=== PATIENT | female | born 1975 | race African-American/Black ===

== ENCOUNTER 2020-10-09 09:25 | Emergency (ER) | payer MEDICAID, OTHER ==
[~2020-10-09] VITALS: Ht 162.6 cm; Wt 133.4 kg
[2020-10-09] MEDS ORDERED: ACETAMINOPHEN 325 MG TAB PO ONE (10:30)
[2020-10-09 11:04] VITALS: BP 129/86
[2020-10-09] MEDS ORDERED: cefTRIAXone SOD 1,000 MG VL IM ONE (11:15)
[2020-10-09] MEDS ORDERED: ACETAMINOPHEN 500 MG TAB PO ONE (11:15)
== END 2020-10-09 12:04 | disposition home or self-care (01) ==
LOC: ER 09:25
DX: H66.93 Otitis media, unspecified, bilateral (principal); J03.90 Acute tonsillitis, unspecified; J45.909 Unspecified asthma, uncomplicated; I10 Essential (primary) hypertension; Z88.8 Allergy status to other drugs, medicaments and biological substances
CPT/HCPCS: 96372; 99283; J0696

== ENCOUNTER 2021-01-18 08:40 | Emergency (ER) | payer MEDICAID ==
[~2021-01-18] VITALS: Ht 162.6 cm; Wt 126.1 kg
[2021-01-18 10:43] LABS: Basophils # (auto) 0 10 ^3/uL (0-0.2); Basophils % (auto) 0.4 % (0.0-2.0); Eosinophils # (auto) 0.1 10 ^3/uL (0-0.8); Eosinophils % (auto) 1.4 % (0.0-7.0); Hematocrit 41.7 % (36.0-46.0); Hemoglobin 13.8 g/dL (12.2-16.2); Lymphocytes # (auto) 2.1 10 ^3/uL (0.4-5.4); Mean Corpuscular Hemoglobin 29.2 pg (28.0-32.0); Mean Corpuscular Hgb Conc. 33.1 g/dL (32.0-36.0); Mean Corpuscular Volume 88.1 fL (80.0-100.0); Monocytes # (auto) 0.7 10 ^3/uL (0-1.3); Neutrophils # (auto) 4.4 10 ^3/uL (1.6-8.6); Neutrophils % (auto) 59.2 % (37.0-80.0); Nucleated Red Blood Cells % 0.1 %; Red Blood Cells 4.74 10^6/uL (4.0-5.20); Red Cell Distribution Width 15.6 % (11.8-14.3); White Blood Cell 7.4 10^3/uL (4.4-10.8)
[2021-01-18 10:59] LABS: INR 1.02 (0.9-1.15); Partial Thromboplastin Time 27.2 sec (23.6-33.0)
[2021-01-18 11:03] LABS: Albumin 3.1 g/dL (3.4-5.0); Calcium 8.5 mg/dL (8.5-10.1); Potassium 4.3 mmol/L (3.5-5.1)
[2021-01-18 11:10] LABS: BUN/Creatinine Ratio 14.8; Bilirubin, Total 0.6 mg/dL (0.2-1.0); Total Protein 8.4 g/dL (6.4-8.2)
[2021-01-18 13:06] LABS: Urine Bacteria NONE SEEN /hpf (None Seen); Urine Blood Negative /uL (Negative); Urine Specific Gravity 1.017 (1.001-1.035); Urine WBC <1 /hpf (0 - 5)
[2021-01-18 14:20] VITALS: BP 158/91
== END 2021-01-18 14:27 | disposition home or self-care (01) ==
LOC: ER 08:40
DX: J18.9 Pneumonia, unspecified organism (principal); I10 Essential (primary) hypertension; M79.89 Other specified soft tissue disorders; Z20.822 Contact with and (suspected) exposure to COVID-19
CPT/HCPCS: 36415; 71045; 80053; 81001; 84484; 85025; 85610; 85730; 87426; 93971

== ENCOUNTER 2021-06-27 09:15 | Emergency (ER) | payer MEDICAID ==
[~2021-06-27] VITALS: Ht 162.6 cm; Wt 127.5 kg
[2021-06-27] MEDS ORDERED: PANTOPRAZOLE 40 MG TAB PO ONE (09:45)
[2021-06-27 10:31] LABS: Basophils # (auto) 0 10 ^3/uL (0-0.2); Basophils % (auto) 0.5 % (0.0-2.0); Eosinophils # (auto) 0.1 10 ^3/uL (0-0.8); Eosinophils % (auto) 1.1 % (0.0-7.0); Hematocrit 40.9 % (36.0-46.0); Hemoglobin 13.6 g/dL (12.2-16.2); Lymphocytes # (auto) 1.9 10 ^3/uL (0.4-5.4); Lymphocytes % (auto) 27.9 % (10.0-50.0); Mean Corpuscular Hemoglobin 29.7 pg (28.0-32.0); Mean Corpuscular Hgb Conc. 33.3 g/dL (32.0-36.0); Mean Corpuscular Volume 89.3 fL (80.0-100.0); Monocytes # (auto) 0.8 10 ^3/uL (0-1.3); Monocytes % (auto) 11.2 % (0.0-12.0); Neutrophils # (auto) 4.1 10 ^3/uL (1.6-8.6); Neutrophils % (auto) 59.3 % (37.0-80.0); Nucleated Red Blood Cells % 0.2 %; Red Blood Cells 4.58 10^6/uL (4.0-5.20); Red Cell Distribution Width 14.8 % (11.8-14.3); White Blood Cell 6.9 10^3/uL (4.4-10.8)
[2021-06-27 10:50] LABS: Potassium 3.9 mmol/L (3.5-5.1)
[2021-06-27 10:55] LABS: BUN/Creatinine Ratio 17.1; Bilirubin, Total 0.5 mg/dL (0.2-1.0); Total Protein 7.4 g/dL (6.4-8.2)
[2021-06-27] MEDS ORDERED: PANT40TA2 PO (12:41)
[2021-06-27 12:58] VITALS: BP 137/100
== END 2021-06-27 13:09 | disposition home or self-care (01) ==
LOC: ER 09:15
DX: K29.70 Gastritis, unspecified, without bleeding (principal); K21.9 Gastro-esophageal reflux disease without esophagitis; I10 Essential (primary) hypertension; Z79.899 Other long term (current) drug therapy; Z88.8 Allergy status to other drugs, medicaments and biological substances
CPT/HCPCS: 36415; 80053; 83690; 84484; 85025; 93005

== ENCOUNTER 2022-05-01 10:19 | Emergency (ER) | payer MEDICAID ==
[~2022-05-01] VITALS: Ht 162.6 cm; Wt 144.9 kg
[~2022-05-01 10:19] MED LIST: PANT40TA2 PO
[2022-05-01 11:17] VITALS: BP 187/75
[2022-05-01] MEDS ORDERED: DexAMETHasone SOD PHOS 10MG/1ML VIAL INJ IM ONE (11:30)
[2022-05-01] MEDS ORDERED: PENICILLIN G BENZ 1200000 UNITS/2 ML SYRG IM ONE (12:45)
[2022-05-01] MEDS ORDERED: IBUP800T26 PO (13:19)
== END 2022-05-01 13:25 | disposition home or self-care (01) ==
LOC: ER 10:19
DX: J02.0 Streptococcal pharyngitis (principal); I10 Essential (primary) hypertension; K21.9 Gastro-esophageal reflux disease without esophagitis; Z79.899 Other long term (current) drug therapy
CPT/HCPCS: 70490; 87880; 96372; 99285; J0561; J1100

== ENCOUNTER 2022-05-27 19:06 | Emergency (ER) | payer MEDICAID ==
[~2022-05-27] VITALS: Ht 162.6 cm; Wt 140.0 kg
[~2022-05-27 19:06] MED LIST changes: +IBUP800T26 PO
[2022-05-27 20:08] LABS: Basophils # (auto) 0.1 10 ^3/uL (0-0.2); Basophils % (auto) 1.3 % (0.0-2.0); Eosinophils # (auto) 0.1 10 ^3/uL (0-0.8); Eosinophils % (auto) 0.6 % (0.0-7.0); Hematocrit 43.8 % (36.0-46.0); Hemoglobin 14.4 g/dL (12.2-16.2); Lymphocytes # (auto) 2.5 10 ^3/uL (0.4-5.4); Lymphocytes % (auto) 24.9 % (10.0-50.0); Mean Corpuscular Hemoglobin 29.6 pg (28.0-32.0); Mean Corpuscular Volume 89.8 fL (80.0-100.0); Monocytes # (auto) 0.9 10 ^3/uL (0-1.3); Monocytes % (auto) 8.7 % (0.0-12.0); Neutrophils # (auto) 6.5 10 ^3/uL (1.6-8.6); Neutrophils % (auto) 64.5 % (37.0-80.0); Red Blood Cells 4.88 10^6/uL (4.0-5.20); Red Cell Distribution Width 15.2 % (11.8-14.3)
[2022-05-27 20:24] LABS: Albumin 3.1 g/dL (3.4-5.0); Calcium 8.8 mg/dL (8.5-10.1); Magnesium 2.3 mg/dL (1.6-2.6); Potassium 3.7 mmol/L (3.5-5.1)
[2022-05-27 20:26] LABS: INR 0.97 (0.9-1.15); Partial Thromboplastin Time 26.8 sec (24.6-33.4)
[2022-05-27 20:27] LABS: BUN/Creatinine Ratio 19.4 (10.0-20.0); Bilirubin, Total 0.4 mg/dL (0.2-1.0); Total Protein 7.7 g/dL (6.4-8.2)
[2022-05-27] MEDS ORDERED: DexAMETHasone SOD PHOS 10MG/1ML VIAL INJ IM ONE (22:15)
[2022-05-27] MEDS ORDERED: KETOROLAC TROMETH 60MG/2ML VIAL IM ONE (22:15)
[2022-05-27] MEDS ORDERED: MORPHINE SULFATE 4 MG/ML SYR/VIAL IM ONE (22:15)
[2022-05-27] MEDS ORDERED: NAP500T PO (22:34)
[2022-05-27 23:06] VITALS: BP 112/65
== END 2022-05-27 23:09 | disposition home or self-care (01) ==
LOC: EDBD 19:06 → ER 19:06 → EDUNIT# 19:06 → ER 23:09
DX: R51.9 Headache, unspecified (principal); E66.01 Morbid (severe) obesity due to excess calories; J45.909 Unspecified asthma, uncomplicated; K21.9 Gastro-esophageal reflux disease without esophagitis; I10 Essential (primary) hypertension; R06.02 Shortness of breath; M54.2 Cervicalgia; Z68.43 Body mass index [BMI] 50.0-59.9, adult
CPT/HCPCS: 36415; 80053; 83735; 83880; 84484; 85025; 85610; 85730; 93005; 96372; 99284; J1100; J1885; J2270

== ENCOUNTER 2022-10-08 23:32 | Inpatient (IN) | payer MEDICAID ==
[~2022-10-08] VITALS: Ht 152.4 cm; Wt 155.5 kg
[~2022-10-08 23:32] MED LIST changes: +IBUP-1455 PO; -IBUP800T26 PO; +NAP500T PO
[2022-10-09] MEDS ORDERED: cloNIDine HCL 0.1 MG TAB PO ONE
[2022-10-09 00:08] LABS: Albumin 3.4 g/dL (3.4-5.0); Calcium 8.8 mg/dL (8.5-10.1); Magnesium 2.2 mg/dL (1.6-2.6); Potassium 3.9 mmol/L (3.5-5.1)
[2022-10-09 00:09] LABS: BUN/Creatinine Ratio 18.3 (10.0-20.0); INR 0.98 (0.9-1.15); Partial Thromboplastin Time 23.4 SEC (24.5-34.5); Prothrombin Time 10.3 sec (9.3-11.8)
[2022-10-09 00:12] LABS: Bilirubin, Total 0.3 mg/dL (0.2-1.0); Total Protein 8.1 g/dL (6.4-8.2)
[2022-10-09 00:15] VITALS: PULSE 69; RESP 17; O2SAT 98
[2022-10-09 00:19] LABS: Basophils # (auto) 0.1 10 ^3/uL (0-0.2); Basophils % (auto) 0.9 % (0.0-2.0); Eosinophils # (auto) 0.2 10 ^3/uL (0-0.8); Eosinophils % (auto) 1.8 % (0.0-7.0); Hematocrit 41.6 % (36.0-46.0); Hemoglobin 13.8 g/dL (12.2-16.2); Lymphocytes # (auto) 3.3 10 ^3/uL (0.4-5.4); Lymphocytes % (auto) 37.1 % (10.0-50.0); Mean Corpuscular Hemoglobin 29.8 pg (28.0-32.0); Mean Corpuscular Hgb Conc. 33.1 g/dL (32.0-36.0); Mean Corpuscular Volume 89.8 fL (80.0-100.0); Monocytes # (auto) 1.2 10 ^3/uL (0-1.3); Monocytes % (auto) 13.9 % (0.0-12.0); Neutrophils # (auto) 4.1 10 ^3/uL (1.6-8.6); Neutrophils % (auto) 46.3 % (37.0-80.0); Nucleated Red Blood Cells % 0.1 %; Red Blood Cells 4.63 10^6/uL (4.0-5.20); Red Cell Distribution Width 15.2 % (11.8-14.3); White Blood Cell 8.8 10^3/uL (4.4-10.8)
[2022-10-09] MEDS ORDERED: ONDANSETRON HCL 4 MG/2 ML VIAL IV ONE (01:30)
[2022-10-09] MEDS ORDERED: MORPHINE SULFATE 4 MG/ML SYR/VIAL IV ONE (01:30)
[2022-10-09] MEDS ORDERED: IOHEXOL 300 MG/ML 100ML BOTTLE IJ ONE (01:33)
[2022-10-09 01:50] LABS: Urine Bacteria NONE SEEN /hpf (None Seen); Urine Clarity CLEAR (Clear); Urine Color Straw (Yellow); Urine Specific Gravity 1.015 (1.001-1.035); Urine WBC 1 /hpf (0 - 5)
[2022-10-09 01:51] LABS: Urine Blood Negative /uL (Negative); Urine Protein, UAD TRACE (Negative); Urine Urobilinogen Normal (Negative)
[2022-10-09] MEDS ORDERED: HYDROcodone-ACET 10/325MG TAB PO ONE (04:30)
[2022-10-09] MEDS ORDERED: MORPHINE SULFATE INJ 2 MG/ml SYRG IV PRN ×2 (05:30)
[2022-10-09] MEDS ORDERED: NITROGLYCERIN 0.4 MG SL TAB SL PRN (05:30)
[2022-10-09] MEDS: SODIUM CHLORIDE 0.9% 1,000 ML IV SCH ×2 (05:30→22:21)
[2022-10-09] MEDS ORDERED: hydrALAZINE HCL 20 MG/ML VL IV PRN ×2 (05:30→08:45)
[2022-10-09] MEDS ORDERED: HYDROcodone-ACET 5/325MG TAB PO PRN (05:30)
[2022-10-09 06:48] LABS: Basophils # (auto) 0 10 ^3/uL (0-0.2); Basophils % (auto) 0.4 % (0.0-2.0); Eosinophils # (auto) 0.2 10 ^3/uL (0-0.8); Eosinophils % (auto) 2.5 % (0.0-7.0); Hematocrit 37.2 % (36.0-46.0); Hemoglobin 12.2 g/dL (12.2-16.2); Lymphocytes # (auto) 2.2 10 ^3/uL (0.4-5.4); Lymphocytes % (auto) 35.3 % (10.0-50.0); Mean Corpuscular Hemoglobin 29.3 pg (28.0-32.0); Mean Corpuscular Volume 88.9 fL (80.0-100.0); Monocytes # (auto) 0.9 10 ^3/uL (0-1.3); Monocytes % (auto) 14.3 % (0.0-12.0); Neutrophils # (auto) 2.9 10 ^3/uL (1.6-8.6); Neutrophils % (auto) 47.5 % (37.0-80.0); Nucleated Red Blood Cells % 0.1 %; Red Blood Cells 4.18 10^6/uL (4.0-5.20); Red Cell Distribution Width 15.1 % (11.8-14.3); White Blood Cell 6.1 10^3/uL (4.4-10.8)
[2022-10-09 07:14] LABS: BUN/Creatinine Ratio 18.6 (10.0-20.0); Calcium 8.5 mg/dL (8.5-10.1)
[2022-10-09 07:17] LABS: Bilirubin, Total 0.3 mg/dL (0.2-1.0); Total Protein 6.4 g/dL (6.4-8.2)
[2022-10-09] MEDS: amLODIPine BESYLATE 5 MG TAB PO SCH ×2 (09:15→10:00)
[2022-10-09] MEDS: DOCUSATE SOD 100 MG CAP PO PRN (09:25)
[2022-10-09] MEDS: ONDANSETRON HCL 4 MG/2 ML VIAL IV PRN (09:25)
[2022-10-09 09:28] LABS: Cholesterol 187 mg/dL (< 200)
[2022-10-09 09:29] LABS: Alcohol, Urine < 3.0 mg/dL (0-10); Amphetamine Screen, Urine NEGATIVE (NEGATIVE); Barbiturate Scree,Urine NEGATIVE (NEGATIVE); Benzodiazephine Screen, Urine NEGATIVE (NEGATIVE); Cannabinoid Screen, Urine NEGATIVE (NEGATIVE); Cocaine Screen, Urine NEGATIVE (NEGATIVE); Opiate Scree,Urine NEGATIVE (NEGATIVE); Phencyclidine Screen, Urine NEGATIVE (NEGATIVE)
[2022-10-09 09:31] LABS: HDL Cholesterol 64 mg/dL (40-59); LDL Cholesterol 116 mg/dL (< 100); Triglycerides 68 mg/dL (< 150)
[2022-10-09 09:49] VITALS: PULSE 68; RESP 20; O2SAT 96
[2022-10-09] MEDS: ASPirin 81 mg TAB PO SCH (10:00)
[2022-10-09] MEDS: CHLORTHALIDONE 25 MG TABLET PO SCH (10:00)
[2022-10-09] MEDS ORDERED: FUROSEMIDE 20 MG/2 ML VIAL IV SCH (10:00)
[2022-10-09] MEDS ORDERED: LISINOPRIL 10 MG TAB PO SCH (10:00)
[2022-10-09 19:15] VITALS: PULSE 79; RESP 14; O2SAT 98
[2022-10-09] MEDS: ACETAMINOPHEN 325 MG TAB PO PRN (20:15)
[2022-10-09] MEDS: ATORVASTATIN 20 MG TAB PO SCH (22:21)
[2022-10-09 23:22] VITALS: BP 145/81; PULSE 62; PULSE 68; RESP 20; TEMP 98.4; O2SAT 98
[2022-10-10] VITALS (7 sets, daily range): BP systolic 130–150; BP diastolic 70–85; PULSE 53–92; RESP 15–20; TEMP 98–98.6; O2SAT 94–99
[2022-10-10 05:47] LABS: Basophils # (auto) 0 10 ^3/uL (0-0.2); Basophils % (auto) 0.5 % (0.0-2.0); Eosinophils # (auto) 0.2 10 ^3/uL (0-0.8); Eosinophils % (auto) 3.5 % (0.0-7.0); Hematocrit 37.6 % (36.0-46.0); Hemoglobin 12.8 g/dL (12.2-16.2); Lymphocytes # (auto) 2.2 10 ^3/uL (0.4-5.4); Lymphocytes % (auto) 35.7 % (10.0-50.0); Mean Corpuscular Hemoglobin 30.2 pg (28.0-32.0); Monocytes # (auto) 0.8 10 ^3/uL (0-1.3); Neutrophils # (auto) 2.9 10 ^3/uL (1.6-8.6); Neutrophils % (auto) 47.3 % (37.0-80.0); Nucleated Red Blood Cells % 0.1 %; Red Blood Cells 4.22 10^6/uL (4.0-5.20); White Blood Cell 6.2 10^3/uL (4.4-10.8)
[2022-10-10 06:05] LABS: Potassium 3.9 mmol/L (3.5-5.1)
[2022-10-10 06:14] LABS: Albumin 2.7 g/dL (3.4-5.0); BUN/Creatinine Ratio 14.5 (10.0-20.0); Bilirubin, Total 0.4 mg/dL (0.2-1.0); Calcium 8.3 mg/dL (8.5-10.1); Total Protein 6.7 g/dL (6.4-8.2)
[2022-10-10] MEDS: ASPirin 81 mg TAB PO SCH (09:25)
[2022-10-10] MEDS: CHLORTHALIDONE 25 MG TABLET PO SCH (09:28)
[2022-10-10] MEDS: amLODIPine BESYLATE 5 MG TAB PO SCH (09:28)
[2022-10-10] MEDS: DOCUSATE SOD 100 MG CAP PO PRN ×2 (09:31→21:08)
[2022-10-10] MEDS ORDERED: PANTOPRAZOLE 40 MG TAB PO ONE (12:45)
[2022-10-10] MEDS: ACETAMINOPHEN 325 MG TAB PO PRN (13:08)
[2022-10-10 13:11] LABS: Hepatitis B Surface Antigen Negative (Negative); Hepatitis C Antibody Negative (Negative)
[2022-10-10] MEDS: SODIUM CHLORIDE 0.9% 1,000 ML IV SCH (14:50)
[2022-10-10] MEDS ORDERED: LORazepam 0.5 MG TAB PO PRN (17:30)
[2022-10-10] MEDS: ONDANSETRON HCL 4 MG/2 ML VIAL IV PRN (21:12)
[2022-10-10] MEDS: ATORVASTATIN 20 MG TAB PO SCH (21:33)
[2022-10-11 04:54] VITALS: BP 148/79; PULSE 77; RESP 16; TEMP 98.4; O2SAT 97
[2022-10-11] MEDS: SODIUM CHLORIDE 0.9% 1,000 ML IV SCH (06:39)
[2022-10-11 08:00] VITALS: PULSE 56
[2022-10-11 08:16] VITALS: PULSE 71; RESP 18; O2SAT 94
[2022-10-11] MEDS ORDERED: HYDR25TA5 PO (08:20)
[2022-10-11 09:00] VITALS: BP 143/82; PULSE 74; RESP 18; TEMP 98.3; O2SAT 98
[2022-10-11 09:25] LABS: Calcium 8.5 mg/dL (8.5-10.1); Potassium 3.8 mmol/L (3.5-5.1)
[2022-10-11 09:29] LABS: BUN/Creatinine Ratio 11.5 (10.0-20.0)
[2022-10-11] MEDS: ASPirin 81 mg TAB PO SCH (09:57)
[2022-10-11] MEDS: amLODIPine BESYLATE 5 MG TAB PO SCH (09:58)
[2022-10-11] MEDS ORDERED: CARVEDILOL 3.125 MG TAB PO SCH (10:00)
[2022-10-11] MEDS ORDERED: HCTZ 25 MG TAB PO SCH (10:00)
[2022-10-11] MEDS ORDERED: PANTOPRAZOLE 40 MG TAB PO SCH (10:00)
[2022-10-11] MEDS ORDERED: AMLO1TAB23 PO (10:25)
[2022-10-11 11:29] VITALS: BP 143/82; PULSE 74; TEMP 36.8
== END 2022-10-11 12:25 | disposition home or self-care (01) | DRG 199 ==
LOC: ER 23:32 → TELE 10-09 05:26 → TELE-WESTW 10-09 23:03
PROVIDERS: ADMIT Nurse Practitioner Family; ATTEND Internal Medicine
PROC: 05HD33Z Insertion of Infusion Device into Right Cephalic Vein, Percutaneous Approach (ICD-10-PCS; principal; 2022-10-09)
PROC: B54MZZA Ultrasonography of Right Upper Extremity Veins, Guidance (ICD-10-PCS; 2022-10-09)
DX: I16.1 Hypertensive emergency (principal); Z68.45 Body mass index [BMI] 70 or greater, adult; E66.01 Morbid (severe) obesity due to excess calories; R09.89 Other specified symptoms and signs involving the circulatory and respiratory systems; G47.33 Obstructive sleep apnea (adult) (pediatric); F41.9 Anxiety disorder, unspecified; J45.909 Unspecified asthma, uncomplicated; I10 Essential (primary) hypertension; Z79.899 Other long term (current) drug therapy; Z98.84 Bariatric surgery status
CPT/HCPCS: 36415; 70450; 71045; 71260; 74177; 80048; 80053; 80061; 80307; 81001; 83036; 83735; 83880; 84443; 84484; 85025; 85379; 85610; 85730; 86803; 87340; 93005; 93306; 93970; 93976; G0378; J2405